=== PATIENT | male | born 1960 | race Caucasian/White ===

== ENCOUNTER 2016-08-10 14:06 | Inpatient (IN) | payer OTHER ==
[2016-08-10] VITALS (8 sets, daily range): BP systolic 117–162; BP diastolic 76–88; PULSE 58–72; RESP 15–22; TEMP 97.8–98.4; O2SAT 98–100
[~2016-08-10] VITALS: Ht 182.9 cm; Wt 89.3 kg
[~2016-08-10 14:06] MED LIST: CYCL-36 PO; GABA100C4 PO; NAPR550 PO; TRIA.1%T TOP; Z.0.NO CURRENT MEDS
[2016-08-10] MEDS ORDERED: HYDROmorphone HCL PF 1 MG/ML VIAL IV PUSH ONE ×2 (14:30→16:45)
[2016-08-10] MEDS ORDERED: IOHEXOL 350 MG/ML 10 ML VIAL (for RAD DIAG) IV ONE (14:49)
[2016-08-10 14:54] LABS: AUTOMATED NEUTROPHIL # 3.4 TH/MM3 (1.8-7.7); BASOPHIL % 0.6 % (0.0-2.0); EOSINOPHIL # 0.1 TH/MM3 (0-0.4); EOSINOPHIL % 1.7 % (0.0-4.0); HEMATOCRIT 36.7 % (39.0-51.0); HEMO FLAGS DIFF FINAL; LYMPH % 26.3 % (9.0-44.0); LYMPHOCYTE # 1.4 TH/MM3 (1.0-4.8); MEAN CELL VOLUME 92.8 FL (80.0-100.0); MEAN CORPUSCULAR HEMOGLOBIN 30.5 PG (27.0-34.0); MEAN CORPUSCULAR HGB CONC 32.8 % (32.0-36.0); MONO % 8.6 % (0.0-8.0); NEUT % 62.8 % (16.0-70.0); PLATELET COUNT 185 TH/MM3 (150-450); RED BLOOD COUNT 3.95 MIL/MM3 (4.50-5.90); RED CELL DISTRIBUTION WIDTH 13.4 % (11.6-17.2); WHITE BLOOD COUNT 5.5 TH/MM3 (4.0-11.0)
--- NOTE | 2016-08-10 15:03 | RADRPT ---
EXAM DATE/TIME: 08/10/2016 14:46 [facility] COMPARISON: No previous studies available for comparison. INDICATIONS : Trauma, fell off roof. RADIATION DOSE: 56.94 CTDIvol (mGy) MEDICAL HISTORY : None SURGICAL HISTORY : None. ENCOUNTER: Initial ACUITY: 1 day PAIN SCALE: 2/10 LOCATION: cranial TECHNIQUE: Multiple contiguous axial images were obtained of the head. Using automated exposure control and adj ustment of the mA and/or kV according to patient size, radiation dose was kept as low as reasonably a chievable to obtain optimal diagnostic quality images. FINDINGS: CEREBRUM: The ventricles are normal. No evidence of midline shift, mass lesion, hemorrhage or acute infarction . No extra-axial fluid collections are seen. POSTERIOR FOSSA: The cerebellum and brainstem demonstrate no acute finding. The 4th ventricle is midline. The cerebe llopontine angle is unremarkable. EXTRACRANIAL: The visualized sinuses are clear. SKULL: The calvaria is intact. No evidence of skull fracture. CONCLUSION: No acute intracranial abnormality is identified. Catrachito Hurley MD on August 10, 2016 at 14:59 Board Certified Radiologist. This report was verified electronically.
--- NOTE | 2016-08-10 15:09 | RADRPT ---
EXAM DATE/TIME: 08/10/2016 14:28 [facility] COMPARISON: No previous studies available for comparison. INDICATIONS : Trauma MEDICAL HISTORY : Smoker. SURGICAL HISTORY : None. ENCOUNTER: Initial ACUITY: 1 day PAIN SCORE: 9/10 LOCATION: Left chest FINDINGS: Two view AP, portable views of the chest demonstrate there is a questionable fracture of the left fou rth rib and maybe even the fifth rib. There is deformity of the sixth rib may also be a fracture. T here is no visible pneumothorax. Lungs are clear, heart and mediastinum are unremarkable. CONCLUSION: Numerous suspected left-sided rib fractures. No visible pneumothorax. William Falcon MD on August 10, 2016 at 14:55 Board Certified Radiologist. This report was verified electronically.
[2016-08-10 15:15] LABS: BICARBONATE 28.3 MEQ/L (21.0-32.0); POTASSIUM 3.7 MEQ/L (3.5-5.1)
--- NOTE | 2016-08-10 15:50 | RADRPT ---
EXAM DATE/TIME: 08/10/2016 14:46 [facility] COMPARISON: No previous studies available for comparison. INDICATIONS : Trauma, fell off roof. RADIATION DOSE: 18.54 CTDIvol (mGy) MEDICAL HISTORY : None SURGICAL HISTORY : None. ENCOUNTER: Initial ACUITY: 1 day PAIN SCALE: 2/10 LOCATION: neck TECHNIQUE: Volumetric scanning of the cervical spine was performed. Multiplanar reconstructions in the sagittal, coronal and oblique axial planes were performed. Using automated exposure control and adjustment o f the mA and/or kV according to patient size, radiation dose was kept as low as reasonably achievable to obtain optimal diagnostic quality images. FINDINGS: There is normal sagittal spine alignment of the cervical spine. No anterolisthesis or retrolisthesis is present. The atlantoaxial relationship is within normal limits. There is no prevertebral soft tiss ue swelling present. No fracture or dislocation is identified. There is decreased disc height at C5-C 6. Left facet arthrosis is present at C2-C3 and bilateral facet arthrosis is present at C7-T1. There is a small left apical pneumothorax identified. Otherwise, the visualized portions of the poste rior fossa, paraspinous soft tissues, and upper lung zones demonstrate no acute abnormality. CONCLUSION: 1. No acute cervical spine abnormality is identified. There are degenerative changes, as above. 2. Small left apical pneumothorax is visualized. Please refer to chest CT report for further descript ion. Catrachito Hurley MD on August 10, 2016 at 15:45 Board Certified Radiologist. This report was verified electronically.
--- NOTE | 2016-08-10 16:05 | RADRPT ---
EXAM DATE/TIME: 08/10/2016 14:54 [facility] Corrected on: August 25, 2016; corrected radiation dose [facility] COMPARISON: No previous studies available for comparison. INDICATIONS : Trauma IV CONTRAST: 95 cc Omnipaque 350 (iohexol) IV ; Cumulative dose for multiple exams. RADIATION DOSE: 12.55 CTDIvol (mGy) ; Combined studies - Thorax/Abdomen/Pelvis MEDICAL HISTORY : None SURGICAL HISTORY : None. ENCOUNTER: Initial ACUITY: 1 day PAIN SCALE: 8/10 LOCATION: Left lateral TECHNIQUE: Volumetric scanning of the chest was performed. Using automated exposure control and adjustment of the mA and/or kV according to patient size, radiation dose was kept as low as reasonab ly achievable to obtain optimal diagnostic quality images. FINDINGS: CT scan of the chest performed without contrast. There is a small left pneumothorax. There are a number of left-sided rib fractures present. There is a small left pleural effusion. The lungs are grossly clear. The aorta is unremarkable. There is coronary atherosclerotic disease. The scapula is unremarkable. The sternum is unremarkable. CONCLUSION: Multiple left-sided rib fractures with a small left pneumothorax. Small pleural effu sweta. Lungs are grossly clear. William Falcon MD on August 10, 2016 at 16:02 Board Certified Radiologist. This report was verified electronically.
--- NOTE | 2016-08-10 16:16 | RADRPT ---
EXAM DATE/TIME: 08/10/2016 15:15 [facility] COMPARISON: No previous studies available for comparison. INDICATIONS : Fell off roof,hit back on ground. RADIATION DOSE: 36.18 CTDIvol (mGy) MEDICAL HISTORY : None SURGICAL HISTORY : None. ENCOUNTER: Initial ACUITY: 1 day PAIN SCALE: 8/10 LOCATION: T-spine TECHNIQUE: Volumetric scanning of the thoracic spine was performed. Multiplanar reconstructions in the sagittal , coronal and oblique axial planes were performed. Using automated exposure control and adjustment o f the mA and/or kV according to patient size, radiation dose was kept as low as reasonably achievable to obtain optimal diagnostic quality images. FINDINGS: The vertebral bodies of the thoracic spine are in normal alignment without evidence of subluxation. Vertebral body height is maintained. No fractures are seen. T1-T2: Normal. T2-T3: The thecal sac has a normal diameter. No evidence of disc bulge or protrusion. T3-T4: The thecal sac has a normal diameter. No evidence of disc bulge or protrusion. T4-T5: The thecal sac has a normal diameter. No evidence of disc bulge or protrusion. T5-T6: The thecal sac has a normal diameter. No evidence of disc bulge or protrusion. T6-T7: The thecal sac has a normal diameter. No evidence of disc bulge or protrusion. T7-T8: The thecal sac has a normal diameter. No evidence of disc bulge or protrusion. T8-T9: The thecal sac has a normal diameter. No evidence of disc bulge or protrusion. T9-T10: The thecal sac has a normal diameter. No evidence of disc bulge or protrusion. T10-T11: The thecal sac has a normal diameter. No evidence of disc bulge or protrusion. T11-T12: The thecal sac has a normal diameter. No evidence of disc bulge or protrusion. T12-L1: The thecal sac has a normal diameter. No evidence of disc bulge or protrusion. CONCLUSION: Normal examination. William Falcon MD on August 10, 2016 at 16:14 Board Certified Radiologist. This report was verified electronically.
--- NOTE | 2016-08-10 16:21 | RADRPT ---
EXAM DATE/TIME: 08/10/2016 14:54 [facility] COMPARISON: CT THORAX W CONTRAST, August 10, 2016, 14:54. INDICATIONS : Trauma, fell off roof. Left sided pain. IV CONTRAST: 95 cc Omnipaque 350 (iohexol) IV ; Cumulative dose for multiple exams. ORAL CONTRAST: No oral contrast ingested. RADIATION DOSE: 12.55 CTDIvol (mGy) ; Combined studies - Thorax/Abdomen/Pelvis MEDICAL HISTORY : None SURGICAL HISTORY : None. ENCOUNTER: Initial ACUITY: 1 day PAIN SCALE: 8/10 LOCATION: Left lateral TECHNIQUE: Volumetric scanning of the abdomen and pelvis was performed. Using automated exposure control and ad justment of the mA and/or kV according to patient size, radiation dose was kept as low as reasonably achievable to obtain optimal diagnostic quality images. FINDINGS: LOWER LUNGS: Please refer to chest CT report for description of the supradiaphragmatic findings. LIVER: No acute injury. There is no dilation of the biliary tree. No calcified gallstones. SPLEEN: No acute injury. PANCREAS: Within normal limits. KIDNEYS: Normal in size and shape. There is no mass, stone or hydronephrosis. ADRENAL GLANDS: Within normal limits. VASCULAR: There is no aortic aneurysm. No acute injury. There is moderate atherosclerotic disease. BOWEL/MESENTERY: The stomach, small bowel, and colon demonstrate no acute abnormality. There is no free intraperitone al air or fluid. ABDOMINAL WALL: Within normal limits. RETROPERITONEUM: There is no lymphadenopathy. BLADDER: No wall thickening or mass. REPRODUCTIVE: Within normal limits. INGUINAL: There is no lymphadenopathy or hernia. MUSCULOSKELETAL: There is a comminuted fracture of the left posterior lateral seventh rib and there is slight buckling of the lateral cortex of the right lateral sixth rib. Degenerative changes are present in the lumbar spine. CONCLUSION: 1. There is a left posterior lateral seventh rib fracture and a right lateral sixth rib fracture. A l eft pneumothorax is present. 2. No acute abnormality is identified within the abdomen or pelvis. 3. There is moderate atherosclerotic disease. Catrachito Hurley MD on August 10, 2016 at 16:16 Board Certified Radiologist. This report was verified electronically.
--- NOTE | 2016-08-10 16:54 | PD ---
HPI Chief Complaint: Fall Time Seen by Provider: 14:20 Travel History International Travel<30 days: No Contact w/Intl Traveler<30days: No Traveled to known affect area: No History of Present Illness HPI This is a 55-year-old male who presents to the emergency department having fallen off a roof landing on his left side. He is reporting severe left sided chest pain, constant, worse with deep breaths radiating to the back. He says he doesn't think he hit his head. He is denying any other complaints. PFSH Past Medical History Medical History: Denies Significant Hx Diminished Hearing: No Tetanus Vaccination: < 5 Years Influenza Vaccination: No Social History Alcohol Use: No Tobacco Use: Yes ( 1 ppd) Substance Use: No Allergies-Medications (Allergen,Severity, Reaction): Coded Allergies: No Known Allergies (Verified , 08/10/16) Reported Meds & Prescriptions Reported Meds & Active Scripts Active No Active Prescriptions or Reported Medications Review of Systems Except as stated in HPI: all other systems reviewed are Neg Physical Exam Narrative GENERAL: Uncomfortable in moderate pain SKIN: Focused skin assessment warm and dry. HEAD: Atraumatic. Normocephalic. EYES: Pupils equal and round. No injection or drainage. ENT: Moist mucous membranes NECK: Trachea midline. CARDIOVASCULAR: Regular rate and rhythm. No murmur appreciated. RESPIRATORY: Clear to auscultation. Breath sounds equal bilaterally. Tender to palpation along the left posterior rib cage. GASTROINTESTINAL: Abdomen soft, non-tender, nondistended. MUSCULOSKELETAL: No obvious deformities. NEUROLOGICAL: Awake and alert. No obvious cranial nerve deficits. Moving all extremities. PSYCHIATRIC: Appropriate mood and affect; insight and judgment normal. Data Data Last Documented VS Vital Signs Date Time Temp Pulse Resp B/P Pulse Ox O2 Delivery O2 Flow Rate FiO2 08/10/16 15:47 78 17 99 Room Air 08/10/16 15:45 133/82 08/10/16 14:21 98.2 Orders Complete Blood Count With Diff (08/10/16 14:20) Basic Metabolic Panel (Bmp) (08/10/16 14:20) ^ Insert Iv (08/10/16 14:20) Ct Brain W/O Iv Contrast(Rout) (08/10/16 ) Ct Cerv Spine W/O Contrast (08/10/16 ) Ct Thorax/ Chest W Iv Contrast (08/10/16 ) Ct Abd/Pel W Iv Contrast(Rout) (08/10/16 ) Chest, Single Ap (08/10/16 ) Hydromorphone Pf Inj (Dilaudid Pf Inj) (08/10/16 14:30) Ct Thor Spine W/O Contrast (08/10/16 ) Iohexol 350 Inj (Omnipaque 350 Inj) (08/10/16 14:49) Hydromorphone Pf Inj (Dilaudid Pf Inj) (08/10/16 16:45) Admit Order (Ed Use Only) (08/10/16 16:34) Labs Laboratory Tests Test 08/10/16 14:30 White Blood Count 5.5 TH/MM3 Red Blood Count 3.95 MIL/MM3 Hemoglobin 12.1 GM/DL Hematocrit 36.7 % Mean Corpuscular Volume 92.8 FL Mean Corpuscular Hemoglobin 30.5 PG Mean Corpuscular Hemoglobin 32.8 % Concent Red Cell Distribution Width 13.4 % Platelet Count 185 TH/MM3 Mean Platelet Volume 8.9 FL Neutrophils (%) (Auto) 62.8 % Lymphocytes (%) (Auto) 26.3 % Monocytes (%) (Auto) 8.6 % Eosinophils (%) (Auto) 1.7 % Basophils (%) (Auto) 0.6 % Neutrophils # (Auto) 3.4 TH/MM3 Lymphocytes # (Auto) 1.4 TH/MM3 Monocytes # (Auto) 0.5 TH/MM3 Eosinophils # (Auto) 0.1 TH/MM3 Basophils # (Auto) 0.0 TH/MM3 CBC Comment DIFF FINAL Differential Comment Sodium Level 143 MEQ/L Potassium Level 3.7 MEQ/L Chloride Level 109 MEQ/L Carbon Dioxide Level 28.3 MEQ/L Anion Gap 6 MEQ/L Blood Urea Nitrogen 14 MG/DL Creatinine 0.91 MG/DL Estimat Glomerular Filtration 86 ML/MIN Rate Random Glucose 108 MG/DL Calcium Level 8.5 MG/DL [facility] Medical Decision Making Medical Screen Exam Complete: Yes Emergency Medical Condition: Yes Interpretation(s) Afebrile, hypertensive No leukocytosis Mild anemia Electrolytes are reassuring Last 24 hours Impressions Thoracic Spine CT 08/10/16 0000 Signed Impressions: Service Date/Time: July 15:15 - CONCLUSION: Normal examination. William Falcon MD Head CT 08/10/16 Signed Impressions: Service Date/Time: July 14:46 - CONCLUSION: No acute intracranial abnormality is identified. Catrachito Hurley MD Chest X-Ray 08/10/16 Signed Impressions: Service Date/Time: July 14:28 - CONCLUSION: Numerous suspected left-sided rib fractures. No visible pneumothorax. William Falcon MD Cervical Spine CT 08/10/16 Signed Impressions: Service Date/Time: July 14:46 - CONCLUSION: 1. No acute cervical spine abnormality is identified. There are degenerative changes, as above. 2. Small left apical pneumothorax is visualized. Please refer to chest CT report for further description. Catrachito Hurley MD Abdomen/Pelvis CT 08/10/16 Signed Impressions: Service Date/Time: July 14:54 - CONCLUSION: 1. There is a left posterior lateral seventh rib fracture and a right lateral sixth rib fracture. A left pneumothorax is present. 2. No acute abnormality is identified within the abdomen or pelvis. 3. There is moderate atherosclerotic disease. Catrachito Hurley MD Differential Diagnosis Pneumothorax, hemothorax, rib fracture, compression fracture, splenic laceration , liver laceration Narrative Course This is a 55-year-old male who fell off a roof landing on his left side. Patient is reporting severe pain involving the left posterior ribs. He was placed on a monitor and an IV was established. Labs were obtained which were reassuring. Vital signs are reassuring with no hypoxia. Chest x-ray demonstrates rib fractures. CTs were obtained which demonstrate multiple rib fractures with a small left pneumothorax. Case was discussed with Physician Communication Physician Communication Discussed with Dr. Babcock Diagnosis Primary Impression: Pneumothorax Qualified Code: S27.0XXA - Traumatic pneumothorax, initial encounter Admitting Information Admitting Physician Requests: Admit Scripts No Active Prescriptions or Reported Meds Jeannie Chamberlain MD Aug 10, 2016 16:53
[2016-08-10] MEDS ORDERED: LIDOCAINE HCL 1% PF 30 ML VIAL INFIL ONE (17:00)
[2016-08-10] MEDS ORDERED: PCA - TOTAL MG DILAUDID DELIVERED PER SHIFT OTHER SCH (17:15)
[2016-08-10] MEDS ORDERED: SODIUM CHLORIDE 0.9% FLUSH 10 ML FLUSH IV FLUSH PRN (17:15)
[2016-08-10] MEDS ORDERED: ONDANSETRON HCL 4 MG/2 ML VIAL IV PRN (17:15)
[2016-08-10] MEDS ORDERED: MISCELLANEOUS NURSING INFORMATION XX SCH (17:15)
[2016-08-10] MEDS ORDERED: CHLORHEXIDINE GLUCONATE 2 % 1 PACK (2 CLOTHS) TOP PRN (17:15)
[2016-08-10] MEDS ORDERED: NALOXONE HCL 0.4 MG/ML AMP IV PRN ×2 (17:15→19:45)
[2016-08-10] MEDS ORDERED: MIDAZOLAM HCL 5 MG/ML VIAL (1 ML) ONE (17:17)
[2016-08-10] MEDS: SODIUM CHLOR 0.9% 1000 ML INJ 1,000 ML IV SCH (17:30)
[2016-08-10] MEDS ORDERED: KETAMINE HCL 500 MG/10 ML VIAL ONE (17:37)
--- NOTE | 2016-08-10 18:29 | RADRPT ---
EXAM DATE/TIME: 08/10/2016 17:58 [facility] COMPARISON: CT THORAX W CONTRAST, August 10, 2016, 14:54. CHEST SINGLE AP, August 10, 2016, 14:28. INDICATIONS : Chest tube placement. MEDICAL HISTORY : None. SURGICAL HISTORY : None. ENCOUNTER: Initial ACUITY: 1 day PAIN SCORE: 10/10 LOCATION: Left chest FINDINGS: There has been interval placement of a left thoracostomy tube. Pneumothorax is resolved. Chest is oth erwise stable and satisfactory. There is some subcutaneous emphysema now present along the lateral le ft chest wall CONCLUSION: Left thoracostomy tube placement. Catrachito Huynh MD on August 10, 2016 at 18:26 Board Certified Radiologist. This report was verified electronically.
--- NOTE | 2016-08-10 18:58 | HHI.HP ---
History of Present Illness Primary Care Physician No Primary Care Physician Admission Diagnosis pneumothorax Diagnoses: History of Present Illness 55 y.o male from [facility]-c/o left thoracic pain-s/p moderate sedation with ketamine for CT insertion-HD normal.moving all 4 extremities-neuro intact-CT scan work up performed by ER. Review of Systems Constitutional: DENIES: Diaphoretic episodes, Fatigue, Fever, Weight gain, Weight loss, Chills, Dizziness, Change in appetite, Night Sweats Endocrine: DENIES: Heat/cold intolerance, Polydipsia, Polyuria, Polyphagia Eyes: DENIES: Blurred vision, Diplopia, Eye inflammation, Eye pain, Vision loss , Photosensitivity, Double Vision Ears, nose, mouth, throat: DENIES: Tinnitus, Hearing loss, Vertigo, Nasal discharge, Oral lesions, Throat pain, Hoarseness, Ear Pain, Running Nose, Epistaxis, Sinus Pain, Toothache, Odynophagia Respiratory: DENIES: Apneas, Cough, Snoring, Wheezing, Hemoptysis, Sputum production, Shortness of breath Cardiovascular: DENIES: Chest pain, Palpitations, Syncope, Dyspnea on Exertion , PND, Lower Extremity Edema, Orthopnea, Claudication Gastrointestinal: DENIES: Abdominal pain, Black stools, Bloody stools, Constipation, Diarrhea, Nausea, Vomiting, Difficulty Swallowing, Anorexia Genitourinary: DENIES: Sexual dysfunction, Urinary frequency, Urinary incontinence, Urgency, Hematuria, Dysuria, Nocturia, Penile Discharge, Testicular Pain, Testicular Swelling Musculoskeletal: DENIES: Joint pain, Muscle aches, Stiffness, Joint Swelling, Back pain, Neck pain Integumentary: DENIES: Abnormal pigmentation, Nail changes, Pruritus, Rash Hematologic/lymphatic: DENIES: Bruising, Lymphadenopathy Immunologic/allergic: DENIES: Eczema, Urticaria Neurologic: DENIES: Abnormal gait, Headache, Localized weakness, Paresthesias, Seizures, Speech Problems, Tremor, Poor Balance Psychiatric: DENIES: Anxiety, Confusion, Mood changes, Depression, Hallucinations, Agitation, Suicidal Ideation, Homicidal Ideation, Delusions Past Family Social History Allergies: Coded Allergies: No Known Allergies (Verified , 08/10/16) Past Medical History none Past Surgical History none Reported Medications none Active Ordered Medications Current Medications Medications (Trade) Dose Ordered Sig/Cecilio Route Start Time Stop Time Status Last Admin (NS 1000 ml Inj) 1,000 ml @ 84 mls/hr [id number] IV 08/10/16 17:02 08/10/16 17:30 (NS Flush) 2 ml UNSCH PRN IV FLUSH 08/10/16 17:15 (NS Flush) 2 ml BID IV FLUSH 08/10/16 21:00 (Zofran Inj) 4 mg Q6H PRN IV 08/10/16 17:15 (Lactulose Liq) 30 ml DAILY PO 08/11/16 09:00 Miscellaneous Information 1 [id number] XX 08/10/16 17:15 (Chlorhexidine 2% Cloth) 3 pack Taper DAILY@04 TOP 08/11/16 04:00 08/07/17 03:59 (Chlorhexidine 2% Cloth) 3 pack UNSCH PRN TOP 08/10/16 17:15 (Narcan Inj) 0.4 mg UNSCH PRN IV 08/10/16 17:15 TRANSFER CLERK Dosage Infused (Pha) 1 Q8HR OTHER 08/10/16 17:15 Family History none Social History tobacco- + Physical Exam Vital Signs Vital Signs Date Time Temp Pulse Resp B/P Pulse Ox O2 Delivery O2 Flow Rate FiO2 08/10/16 18:17 97.8 58 18 117/88 100 Nasal Cannula 2 08/10/16 18:07 100 6.00 08/10/16 17:33 60 18 159/81 100 Nasal Cannula 2 08/10/16 17:08 17 08/10/16 15:47 78 17 99 Room Air 08/10/16 15:45 59 16 133/82 98 Room Air 08/10/16 15:03 17 08/10/16 14:21 98.2 71 15 154/85 98 Physical Exam GENERAL: This is a well-nourished, well-developed patient, in no apparent distress. SKIN: No rashes, ecchymoses or lesions. Cool and dry. HEAD: Atraumatic. Normocephalic. No temporal or scalp tenderness. EYES: Pupils equal round and reactive. Extraocular motions intact. No scleral icterus. No injection or drainage. ENT: Nose without bleeding, purulent drainage or septal hematoma. Throat without erythema, tonsillar hypertrophy or exudate. Uvula midline. Airway patent. NECK: Trachea midline. No JVD or lymphadenopathy. Supple, nontender, no meningeal signs. CARDIOVASCULAR: Regular rate and rhythm without murmurs, gallops, or rubs. RESPIRATORY: Clear to auscultation. Breath sounds equal bilaterally. No wheezes , rales, or rhonchi.-left thoracic tenderness GASTROINTESTINAL: Abdomen soft, non-tender, nondistended. No hepato-splenomegaly , or palpable masses. No guarding. MUSCULOSKELETAL: Extremities without clubbing, cyanosis, or edema. No joint tenderness, effusion, or edema noted. No calf tenderness. Negative Homans sign bilaterally. NEUROLOGICAL: Awake and alert. Cranial nerves II through XII intact. Motor and sensory grossly within normal limits. Five out of 5 muscle strength in all muscle groups. Normal speech. Laboratory Laboratory Tests Test 08/10/16 14:30 White Blood Count 5.5 Red Blood Count 3.95 Hemoglobin 12.1 Hematocrit 36.7 Mean Corpuscular Volume 92.8 Mean Corpuscular Hemoglobin 30.5 Mean Corpuscular Hemoglobin 32.8 Concent Red Cell Distribution Width 13.4 Platelet Count 185 Mean Platelet Volume 8.9 Neutrophils (%) (Auto) 62.8 Lymphocytes (%) (Auto) 26.3 Monocytes (%) (Auto) 8.6 Eosinophils (%) (Auto) 1.7 Basophils (%) (Auto) 0.6 Neutrophils # (Auto) 3.4 Lymphocytes # (Auto) 1.4 Monocytes # (Auto) 0.5 Eosinophils # (Auto) 0.1 Basophils # (Auto) 0.0 CBC Comment DIFF FINAL Differential Comment Sodium Level 143 Potassium Level 3.7 Chloride Level 109 Carbon Dioxide Level 28.3 Anion Gap 6 Blood Urea Nitrogen 14 Creatinine 0.91 Estimat Glomerular Filtration 86 Rate Random Glucose 108 Calcium Level 8.5 Result Diagram: 08/10/16 1430 08/10/16 1430 Imaging Last 24 hours Impressions Thoracic Spine CT 08/10/16 0000 Signed Impressions: Service Date/Time: July 15:15 - CONCLUSION: Normal examination. William Falcon MD Head CT 08/10/16 0000 Signed Impressions: Service Date/Time: July 14:46 - CONCLUSION: No acute intracranial abnormality is identified. Catrachito Hurley MD Chest X-Ray 08/10/16 0000 Signed Impressions: Service Date/Time: July 17:58 - CONCLUSION: Left thoracostomy tube placement. Catrachito Huynh MD Chest X-Ray 08/10/16 0000 Signed Impressions: Service Date/Time: July 14:28 - CONCLUSION: Numerous suspected left-sided rib fractures. No visible pneumothorax. William Falcon MD Chest CT 08/10/16 0000 Signed Impressions: Service Date/Time: July 14:54 - CONCLUSION: Multiple left-sided rib fractures with a small left pneumothorax. Small pleural effusion. Lungs are grossly clear. William Falcon MD Cervical Spine CT 08/10/16 0000 Signed Impressions: Service Date/Time: , August 10, 2016 14:46 - CONCLUSION: 1. No acute cervical spine abnormality is identified. There are degenerative changes, as above. 2. Small left apical pneumothorax is visualized. Please refer to chest CT report for further description. Catrachito Hurley MD Abdomen/Pelvis CT 08/10/16 0000 Signed Impressions: Service Date/Time: July 14:54 - CONCLUSION: 1. There is a left posterior lateral seventh rib fracture and a right lateral sixth rib fracture. A left pneumothorax is present. 2. No acute abnormality is identified within the abdomen or pelvis. 3. There is moderate atherosclerotic disease. Catrachito Hurley MD Course multiple left rib fx left 20-30% ptx left CT thoracostomy by ER admit to ICU TRANSFER CLERK pulmonary toilet IS Rubi Ray MD Aug 10, 2016 18:58
[2016-08-10] MEDS: KETOROLAC TROMETHAMINE 30 MG/ML (IVP) VIAL IV PUSH SCH (20:21)
[2016-08-10] MEDS: SODIUM CHLORIDE 0.9% FLUSH 10 ML FLUSH IV FLUSH SCH (20:21)
[2016-08-10] MEDS: HYDROmorphone HCL PCA 6 MG/30 ML IV SCH (21:08)
[2016-08-10] MEDS: PCA - TOTAL MG DILAUDID DELIVERED PER SHIFT OTHER SCH (22:00)
[2016-08-11] VITALS (11 sets, daily range): BP systolic 104–145; BP diastolic 63–82; PULSE 54–88; RESP 12–22; TEMP 97.5–99.2; O2SAT 92–100
[2016-08-11] MEDS: KETOROLAC TROMETHAMINE 30 MG/ML (IVP) VIAL IV PUSH SCH ×5 (00:25→22:20)
[2016-08-11] MEDS: SODIUM CHLOR 0.9% 1000 ML INJ 1,000 ML IV SCH (03:19)
[2016-08-11] MEDS: CHLORHEXIDINE GLUCONATE 2 % 1 PACK (2 CLOTHS) TOP SCH (04:00)
[2016-08-11 04:40] LABS: AUTOMATED NEUTROPHIL # 3.7 TH/MM3 (1.8-7.7); BASOPHIL % 0.2 % (0.0-2.0); EOSINOPHIL % 0.6 % (0.0-4.0); HEMATOCRIT 36.9 % (39.0-51.0); HEMO FLAGS DIFF FINAL; LYMPH % 34.2 % (9.0-44.0); LYMPHOCYTE # 2.3 TH/MM3 (1.0-4.8); MEAN CELL VOLUME 93.7 FL (80.0-100.0); MEAN CORPUSCULAR HEMOGLOBIN 30.4 PG (27.0-34.0); MEAN CORPUSCULAR HGB CONC 32.4 % (32.0-36.0); MONO % 9.9 % (0.0-8.0); NEUT % 55.1 % (16.0-70.0); PLATELET COUNT 169 TH/MM3 (150-450); RED BLOOD COUNT 3.94 MIL/MM3 (4.50-5.90); RED CELL DISTRIBUTION WIDTH 12.9 % (11.6-17.2); WHITE BLOOD COUNT 6.7 TH/MM3 (4.0-11.0)
[2016-08-11 04:57] LABS: BICARBONATE 31.1 MEQ/L (21.0-32.0); POTASSIUM 4.4 MEQ/L (3.5-5.1)
[2016-08-11] MEDS: PCA - TOTAL MG DILAUDID DELIVERED PER SHIFT OTHER SCH ×3 (06:00→21:02)
--- NOTE | 2016-08-11 06:59 | RADRPT ---
EXAM DATE/TIME: 08/11/2016 05:50 [facility] COMPARISON: CHEST SINGLE AP, August 10, 2016, 17:58. INDICATIONS : Shortness of breath. MEDICAL HISTORY : None. SURGICAL HISTORY : None. ENCOUNTER: Subsequent ACUITY: 3 days PAIN SCORE: Non-responsive. LOCATION: chest FINDINGS: Left chest tube remains in place. No definite pneumothorax. The lungs are grossly clear. The heart si ze is stable. There are no pleural effusions. CONCLUSION: No definite pneumothorax. Dino Erickson MD on August 11, 2016 at 6:57 Board Certified Radiologist. This report was verified electronically.
[2016-08-11] MEDS: LACTULOSE SYRUP 20 GM/30 ML CUP PO SCH (08:35)
[2016-08-11] MEDS: LIDOCAINE HCL 5% PATCH T-DERMAL SCH (08:37)
[2016-08-11] MEDS: FAMOTIDINE 20 MG TAB PO SCH ×2 (08:39→19:41)
[2016-08-11] MEDS: METHOCARBAMOL 500 MG TAB PO SCH ×3 (08:39→22:20)
[2016-08-11] MEDS: SODIUM CHLORIDE 0.9% FLUSH 10 ML FLUSH IV FLUSH SCH ×2 (08:39→19:42)
[2016-08-11] MEDS: DOCUSATE SODIUM 100 MG CAP PO SCH ×2 (08:39→19:41)
[2016-08-11] MEDS: ENOXAPARIN SODIUM 30 MG/0.3 ML SYRINGE SQ SCH ×2 (08:47→19:41)
--- NOTE | 2016-08-11 11:05 | HHI.CCPN ---
Subjective Brief History [place]: This is a 55-year-old male who was involved in a fall from a roof and landed on his left side. INJURIES: LEFT rib fx (multiple) LEFT PTX RIGHT rib fx (6) Procedures: 08/10: LEFT CT in the ED 24 Hour Review/Hospital Course 08/11/2016 PTD: 1 Patient is awake and sitting up in bed. He states, "I'm not that bad, I'm doing alright. " Plan for transferred to the [facility] floor. (Brenna Hull) Objective Vital Signs Date Time Temp Pulse Resp B/P Pulse Ox O2 Delivery O2 Flow Rate FiO2 08/11/16 10:52 97.7 62 20 104/66 93 08/11/16 08:33 Room Air 08/11/16 08:21 2.00 Intake and Output 08/10/16 08/10/16 08/11/16 08:00 16:00 00:00 Intake Total 1551 ml Output Total 20 ml Balance 1531 ml (Brenna Hull) Imaging Last 24 hours Impressions Chest X-Ray 08/11/16 0000 Signed Impressions: Service Date/Time: Thursday, August 11, 2016 05:50 - CONCLUSION: No definite pneumothorax. Dino Erickson MD Objective Remarks GENERAL: This is a 55-year-old male sitting up in bed in no acute distress SKIN: Warm and dry. HEAD: Atraumatic. Normocephalic. EYES: PERRLA ENT: No nasal bleeding or discharge. Mucous membranes pink and moist. NECK: Trachea midline. No JVD. CARDIOVASCULAR: Regular rate and rhythm. CM shows sinus rhythm. RESPIRATORY: No accessory muscle use. Lungs are clear to auscultation. Breath sounds equal bilaterally. No distress or dyspnea. Left chest tube in place to Pleur-evac drainage system to 20 cm suction. GASTROINTESTINAL: BS + x 4 quads. Abdomen soft, non-tender, nondistended. MUSCULOSKELETAL: Extremities without cyanosis, or edema. + peripheral pulses x 4 extremities. Warm with good capillary refill and sensation. MAEW. NEUROLOGICAL: Awake and alert. Normal speech and pattern. (Brenna Hull) Urinary Catheter Assessment Urinary Catheter: No (Brenna Hull) Vascular Central Line Catheter Vascular Central Line Catheter: No (Brenna Hull) Assessment and Plan Assessment: (1) Pneumothorax ICD Code: J93.9 Status: Acute (2) Ribs, multiple fractures ICD Code: S22.49XA Status: Acute Plan [place]: This is a 55-year-old male who was involved in a fall from a roof and landed on his left side. INJURIES: LEFT rib fx (multiple) LEFT PTX RIGHT rib fx (6) 08/10: LEFT CT in the ED Diet: Regular diet. Tolerating po diet. Encourage good po intake with each meal. Pulmonary: Encourage good pulmonary toileting. IS and a acapella at bedside and pt encouraged to use. Rationale for use explained to patient, and verbalized understanding. EZ pap. Left chest tube remains in place to 20 cm suction. Repeat chest x-ray in the morning. Repeat labs in the a.m. 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 Robaxin. Lidoderm patch. Activity: OOB. PT ordered. GI prophylaxis: Pepcid po Bowel regimen: Colace and MOM. LBM: 0 DVT prophylaxis: Mechanical VTE with SCDs. Chemical management with Lovenox 30 BID SQ. DC Planning: Case management consulted for assistance with final discharge disposition. Emotional support provided to patient and family at bedside and plan of care discussed. Discussed with RN at bedside. Patient is hemodynamically stable in the ICU and therefore can be transferred and managed on the med/surg floor. (Brenna Hull) Remarks seen and examined with SERVICING REP-agree with assessment and plan overall stable continue current care (Rubi Ray MD) Problem Qualifiers (1) Pneumothorax: Qualified Code: S27.0XXA - Traumatic pneumothorax, initial encounter (2) Ribs, multiple fractures: Qualified Code: S22.42XA - Closed fracture of multiple ribs of left side, initial encounter Brenna Hull Aug 11, 2016 11:05 Rubi Ray MD August 30, 2016 12:23
[2016-08-11] MEDS ORDERED: SIMETHICONE 80 MG CHEWABLE TAB CHEW PRN (14:45)
[2016-08-11] MEDS: HYDROmorphone HCL PCA 6 MG/30 ML IV SCH (18:32)
[2016-08-11] MEDS: MAGNESIUM HYDROXIDE SUSP 30 ML CUP PO SCH (19:42)
[2016-08-12 00:23] VITALS: BP 102/62; PULSE 64; RESP 20; TEMP 99.4; O2SAT 94
[2016-08-12] MEDS: CHLORHEXIDINE GLUCONATE 2 % 1 PACK (2 CLOTHS) TOP SCH (04:00)
[2016-08-12 04:11] VITALS: BP 115/72; PULSE 72; RESP 22; TEMP 98.9; O2SAT 92
[2016-08-12] MEDS: PCA - TOTAL MG DILAUDID DELIVERED PER SHIFT OTHER SCH ×3 (04:44→22:48)
[2016-08-12] MEDS: METHOCARBAMOL 500 MG TAB PO SCH ×3 (05:07→22:48)
[2016-08-12] MEDS: KETOROLAC TROMETHAMINE 30 MG/ML (IVP) VIAL IV PUSH SCH ×4 (05:08→22:48)
[2016-08-12 05:34] LABS: AUTOMATED NEUTROPHIL # 3.1 TH/MM3 (1.8-7.7); BASOPHIL % 0.3 % (0.0-2.0); EOSINOPHIL # 0.2 TH/MM3 (0-0.4); EOSINOPHIL % 2.7 % (0.0-4.0); HEMATOCRIT 35.4 % (39.0-51.0); HEMO FLAGS DIFF FINAL; LYMPH % 34.1 % (9.0-44.0); MEAN CELL VOLUME 92.8 FL (80.0-100.0); MEAN CORPUSCULAR HEMOGLOBIN 31.4 PG (27.0-34.0); MEAN CORPUSCULAR HGB CONC 33.9 % (32.0-36.0); MONO % 10.1 % (0.0-8.0); NEUT % 52.8 % (16.0-70.0); PLATELET COUNT 165 TH/MM3 (150-450); RED BLOOD COUNT 3.81 MIL/MM3 (4.50-5.90); RED CELL DISTRIBUTION WIDTH 13.2 % (11.6-17.2); WHITE BLOOD COUNT 5.8 TH/MM3 (4.0-11.0)
[2016-08-12 05:56] LABS: ALT (GPT) 95 U/L (12-78); ANION GAP 4 MEQ/L (5-15); AST (GOT) 76 U/L (15-37); BICARBONATE 29.1 MEQ/L (21.0-32.0); BLOOD UREA NITROGEN 17 MG/DL (7-18); CHLORIDE 106 MEQ/L (98-107); GLOMERULAR FILTRATION RATE 85 ML/MIN (>89); MAGNESIUM 2.1 MG/DL (1.5-2.5); POTASSIUM 3.9 MEQ/L (3.5-5.1); SODIUM (NA) 139 MEQ/L (136-145)
[2016-08-12 05:59] LABS: ALKALINE PHOSPHATASE 68 U/L (45-117); TOTAL BILIRUBIN ADULT 0.4 MG/DL (0.2-1.0)
--- NOTE | 2016-08-12 06:31 | RADRPT ---
EXAM DATE/TIME: 08/12/2016 05:18 [facility] COMPARISON: CHEST SINGLE AP, August 11, 2016, 5:50. INDICATIONS : Shortness of breath, possible pulmonary disease. MEDICAL HISTORY : None. SURGICAL HISTORY : None. ENCOUNTER: Subsequent ACUITY: 4 - 6 days PAIN SCORE: 6/10 LOCATION: Left chest FINDINGS: The cardiac silhouette is enlarged in transverse diameter. Left chest tube is in place. There is a ti ny left apical pneumothorax. The right lung is free of acute parenchymal opacity. CONCLUSION: 1. Tiny left apical pneumothorax without tension Greg Rizo MD on August 12, 2016 at 6:29 Board Certified Radiologist. This report was verified electronically.
[2016-08-12] MEDS ORDERED: BISACODYL 10 MG SUPP RECTAL ONE (07:30)
[2016-08-12] MEDS ORDERED: BISACODYL EC 5 MG TABEC PO ONE (07:30)
[2016-08-12 08:00] VITALS: BP 152/84; PULSE 66; RESP 19; TEMP 97.8; O2SAT 94
[2016-08-12] MEDS: LACTULOSE SYRUP 20 GM/30 ML CUP PO SCH (08:01)
[2016-08-12] MEDS: ENOXAPARIN SODIUM 30 MG/0.3 ML SYRINGE SQ SCH ×2 (08:01→21:01)
[2016-08-12] MEDS: FAMOTIDINE 20 MG TAB PO SCH ×2 (08:01→21:01)
[2016-08-12] MEDS: LIDOCAINE HCL 5% PATCH T-DERMAL SCH (08:02)
[2016-08-12] MEDS: SODIUM CHLORIDE 0.9% FLUSH 10 ML FLUSH IV FLUSH SCH ×2 (08:02→21:00)
[2016-08-12] MEDS: DOCUSATE SODIUM 100 MG CAP PO SCH ×2 (08:02→21:01)
[2016-08-12] MEDS: POLYETHYLENE GLYCOL 17 GM PKG PO SCH (08:02)
[2016-08-12 12:00] VITALS: BP 156/89; PULSE 72; RESP 18; TEMP 96; O2SAT 94
--- NOTE | 2016-08-12 13:08 | HHI.PR ---
Subjective Subjective Notes PTD: 2 Patient sitting up in bed. at bedside. Patient still complaining of pain, especially to the left chest/ribs area. Patient states the pain can be up to a 7-8/10 when he is doing his incentive spirometry, or coughing. Objective Vitals/I&O Vital Signs Date Time Temp Pulse Resp B/P Pulse Ox O2 Delivery O2 Flow Rate FiO2 08/12/16 12:00 96.0 72 18 156/89 94 08/12/16 08:50 Room Air 08/11/16 08:21 2.00 Labs Laboratory Tests Test 08/12/16 05:04 White Blood Count 5.8 Red Blood Count 3.81 Hemoglobin 12.0 Hematocrit 35.4 Mean Corpuscular Volume 92.8 Mean Corpuscular Hemoglobin 31.4 Mean Corpuscular Hemoglobin 33.9 Concent Red Cell Distribution Width 13.2 Platelet Count 165 Mean Platelet Volume 9.7 Neutrophils (%) (Auto) 52.8 Lymphocytes (%) (Auto) 34.1 Monocytes (%) (Auto) 10.1 Eosinophils (%) (Auto) 2.7 Basophils (%) (Auto) 0.3 Neutrophils # (Auto) 3.1 Lymphocytes # (Auto) 2.0 Monocytes # (Auto) 0.6 Eosinophils # (Auto) 0.2 Basophils # (Auto) 0.0 CBC Comment DIFF FINAL Differential Comment Sodium Level 139 Potassium Level 3.9 Chloride Level 106 Carbon Dioxide Level 29.1 Anion Gap 4 Blood Urea Nitrogen 17 Creatinine 0.92 Estimat Glomerular Filtration 85 Rate Random Glucose 98 Calcium Level 8.2 Magnesium Level 2.1 Total Bilirubin 0.4 Aspartate Amino Transf 76 (AST/SGOT) Alanine Aminotransferase 95 (ALT/SGPT) Alkaline Phosphatase 68 Total Protein 6.4 Albumin 2.8 Radiology Last Impressions Chest X-Ray 08/12/16 0600 Signed Impressions: Service Date/Time: Friday, August 12, 2016 05:18 - CONCLUSION: 1. Tiny left apical pneumothorax without tension Greg Rizo MD Thoracic Spine CT 08/10/16 0000 Signed Impressions: Service Date/Time: July 15:15 - CONCLUSION: Normal examination. William Falcon MD Head CT 08/10/16 0000 Signed Impressions: Service Date/Time: July 14:46 - CONCLUSION: No acute intracranial abnormality is identified. Catrachito Hurley MD Chest CT 08/10/16 0000 Signed Impressions: Service Date/Time: July 14:54 - CONCLUSION: Multiple left-sided rib fractures with a small left pneumothorax. Small pleural effusion. Lungs are grossly clear. William Falcon MD Cervical Spine CT 08/10/16 0000 Signed Impressions: Service Date/Time: July 14:46 - CONCLUSION: 1. No acute cervical spine abnormality is identified. There are degenerative changes, as above. 2. Small left apical pneumothorax is visualized. Please refer to chest CT report for further description. Catrachito Hurley MD Abdomen/Pelvis CT 08/10/16 0000 Signed Impressions: Service Date/Time: July 14:54 - CONCLUSION: 1. There is a left posterior lateral seventh rib fracture and a right lateral sixth rib fracture. A left pneumothorax is present. 2. No acute abnormality is identified within the abdomen or pelvis. 3. There is moderate atherosclerotic disease. Catrachito Hurley MD Narrative Exam GENERAL: This is a 55-year-old male sitting up in bed in no acute distress. SKIN: Warm and dry. HEAD: Atraumatic. Normocephalic. EYES: PERRLA ENT: No nasal bleeding or discharge. Mucous membranes pink and moist. NECK: Trachea midline. No JVD. CARDIOVASCULAR: Regular rate and rhythm. CM shows sinus rhythm. RESPIRATORY: No accessory muscle use. Lungs are clear to auscultation. Breath sounds equal bilaterally. No distress or dyspnea. LEFT chest tube in place to Pleur-evac drainage system to 20 cm suction. GASTROINTESTINAL: BS + x 4 quads. Abdomen soft, non-tender, nondistended. MUSCULOSKELETAL: Extremities without cyanosis, or edema. + peripheral pulses x 4 extremities. Warm with good capillary refill and sensation. MAEW. NEUROLOGICAL: Awake and alert. Normal speech and pattern. A/P Problem List: (1) Pneumothorax (2) Ribs, multiple fractures Assessment and Plan [place]: This is a 55-year-old male who was involved in a fall from a roof and landed on his left side. INJURIES: LEFT rib fx (multiple) LEFT PTX RIGHT rib fx (6) 4/13: LEFT CT in the ED Diet: Regular diet. Tolerating po diet. Encourage good po intake with each meal. Pulmonary: Encourage good pulmonary toileting. IS and a acapella at bedside and pt encouraged to use. Rationale for use explained to patient, and verbalized understanding. EZ pap. IS = 100-1200. Chest x-ray this morning still shows small apical PTX. Left chest tube remains in place to 20 cm suction. Repeat chest x-ray in the morning. 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 Robaxin. Lidoderm patch. 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 Added melatonin HS for sleep. Activity: OOB. PT ordered. GI prophylaxis: Pepcid po Bowel regimen: Colace and MOM. LBM: 0. Added lactulose daily, MiraLAX daily and bisacodyl PO/HI x 1 today. DVT prophylaxis: Mechanical VTE with SCDs. Chemical management with Lovenox 30 BID SQ. DC Planning: Case management consulted for assistance with final discharge disposition. Emotional support provided to patient and family at bedside and plan of care discussed. Discussed with RN at bedside. Patient is hemodynamically stable and being managed on the med/surg floor. Problem Qualifiers (1) Pneumothorax: Qualified Code: S27.0XXA - Traumatic pneumothorax, initial encounter Brenna Hull Aug 12, 2016 13:08
[2016-08-12] MEDS ORDERED: MELATONIN 5 MG TAB PO PRN (13:15)
[2016-08-12] MEDS: HYDROmorphone HCL PCA 6 MG/30 ML IV SCH ×2 (13:52→23:35)
[2016-08-12] MEDS ORDERED: oxyCODONE/ACETAMINOPHEN 5 MG/325 MG TAB PO PRN ×2 (14:15)
[2016-08-12 16:00] VITALS: BP 160/87; PULSE 63; RESP 18; TEMP 97.6; O2SAT 94
[2016-08-12 20:28] VITALS: BP 137/85; PULSE 61; RESP 17; TEMP 97.6; O2SAT 93
[2016-08-12] MEDS: MAGNESIUM HYDROXIDE SUSP 30 ML CUP PO SCH (21:01)
[2016-08-13] VITALS (8 sets, daily range): BP systolic 129–186; BP diastolic 79–88; PULSE 61–75; RESP 16–19; TEMP 96.4–98.5; O2SAT 92–100
[2016-08-13] MEDS: CHLORHEXIDINE GLUCONATE 2 % 1 PACK (2 CLOTHS) TOP SCH (02:42)
[2016-08-13] MEDS: KETOROLAC TROMETHAMINE 30 MG/ML (IVP) VIAL IV PUSH SCH ×3 (05:47→17:06)
[2016-08-13] MEDS: METHOCARBAMOL 500 MG TAB PO SCH ×3 (05:47→21:50)
[2016-08-13] MEDS: PCA - TOTAL MG DILAUDID DELIVERED PER SHIFT OTHER SCH (05:52)
--- NOTE | 2016-08-13 06:42 | RADRPT ---
EXAM DATE/TIME: 08/13/2016 05:32 [facility] COMPARISON: CHEST SINGLE AP, August 12, 2016, 5:18. INDICATIONS : Shortness of breath, possible pulmonary disease. MEDICAL HISTORY : None. SURGICAL HISTORY : None. ENCOUNTER: Subsequent ACUITY: 1 week PAIN SCORE: 5/10 LOCATION: Left chest FINDINGS: The cardiac silhouette is normal in transverse diameter. There is prominence of the central pulmonary vasculature with indistinct vascular margins compatible with vascular congestion but no evidence of overt failure. Left chest tube is in place with small left apical pneumothorax. There is subcutaneous emphysema along the left lateral chest wall. CONCLUSION: 1. Pulmonary vascular congestion new when compared to the prior study. 2. Tiny left apical pneumothorax Greg Rizo MD on August 13, 2016 at 6:40 Board Certified Radiologist. This report was verified electronically.
[2016-08-13] MEDS: HYDROmorphone HCL PCA 6 MG/30 ML IV SCH (06:56)
--- NOTE | 2016-08-13 08:00 | HHI.FF ---
Face to Face Verification Diagnosis: (1) Pneumothorax (2) Ribs, multiple fractures Physical Therapy Order: Evaluate and Treat, Improve ambulation, Strength and gait training Home Health Nursing Order: Medical education Signs/symptoms of disease process Medication education-adverse effect Nursing assessment with vital signs I have seen patient Prudencio Lee on 08/13/16. My clinical findings support the need for the requested home health care services because: Ltd mobility - disease progression Deconditioned w/ increased weakness Limited ability to care for self High risk of falls I certify that my clinical findings support that this patient is homebound because: Unsteady gait/balance Unsafe to leave home unassisted Unable to use public transportation Brenna Hull Aug 13, 2016 08:00
[2016-08-13] MEDS: POLYETHYLENE GLYCOL 17 GM PKG PO SCH (08:40)
[2016-08-13] MEDS: FAMOTIDINE 20 MG TAB PO SCH ×2 (08:40→19:50)
[2016-08-13] MEDS: DOCUSATE SODIUM 100 MG CAP PO SCH ×2 (08:40→19:53)
[2016-08-13] MEDS: LIDOCAINE HCL 5% PATCH T-DERMAL SCH (08:41)
[2016-08-13] MEDS: LACTULOSE SYRUP 20 GM/30 ML CUP PO SCH (08:42)
[2016-08-13] MEDS: oxyCODONE/ACETAMINOPHEN 5 MG/325 MG TAB PO PRN ×4 (08:42→21:50)
[2016-08-13] MEDS: ENOXAPARIN SODIUM 30 MG/0.3 ML SYRINGE SQ SCH ×2 (08:43→19:50)
[2016-08-13] MEDS: SODIUM CHLORIDE 0.9% FLUSH 10 ML FLUSH IV FLUSH SCH ×2 (09:00→19:53)
[2016-08-13] MEDS ORDERED: DOCU1CAP39 PO (09:14)
[2016-08-13] MEDS ORDERED: MILKSUS PO (09:14)
[2016-08-13] MEDS ORDERED: MELA1TAB22 PO (09:14)
--- NOTE | 2016-08-13 09:31 | HHI.PR ---
Subjective Subjective Notes PTD: 3 Patient is still painful, especially when he coughs. Patient states he feels his ribs "popping." He states he's been getting out of bed to the chair. Objective Vitals/I&O Vital Signs Date Time Temp Pulse Resp B/P Pulse Ox O2 Delivery O2 Flow Rate FiO2 08/13/16 06:56 17 08/13/16 04:00 98.5 71 150/88 97 08/12/16 21:01 Room Air 08/11/16 08:21 2.00 Labs Laboratory Tests Test 08/12/16 05:04 White Blood Count 5.8 TH/MM3 Red Blood Count 3.81 MIL/MM3 Hemoglobin 12.0 GM/DL Hematocrit 35.4 % Mean Corpuscular Volume 92.8 FL Mean Corpuscular Hemoglobin 31.4 PG Mean Corpuscular Hemoglobin 33.9 % Concent Red Cell Distribution Width 13.2 % Platelet Count 165 TH/MM3 Mean Platelet Volume 9.7 FL Neutrophils (%) (Auto) 52.8 % Lymphocytes (%) (Auto) 34.1 % Monocytes (%) (Auto) 10.1 % Eosinophils (%) (Auto) 2.7 % Basophils (%) (Auto) 0.3 % Neutrophils # (Auto) 3.1 TH/MM3 Lymphocytes # (Auto) 2.0 TH/MM3 Monocytes # (Auto) 0.6 TH/MM3 Eosinophils # (Auto) 0.2 TH/MM3 Basophils # (Auto) 0.0 TH/MM3 CBC Comment DIFF FINAL Differential Comment Sodium Level 139 MEQ/L Potassium Level 3.9 MEQ/L Chloride Level 106 MEQ/L Carbon Dioxide Level 29.1 MEQ/L Anion Gap 4 MEQ/L Blood Urea Nitrogen 17 MG/DL Creatinine 0.92 MG/DL Estimat Glomerular Filtration 85 ML/MIN Rate Random Glucose 98 MG/DL Calcium Level 8.2 MG/DL Magnesium Level 2.1 MG/DL Total Bilirubin 0.4 MG/DL Aspartate Amino Transf 76 U/L (AST/SGOT) Alanine Aminotransferase 95 U/L (ALT/SGPT) Alkaline Phosphatase 68 U/L Total Protein 6.4 GM/DL Albumin 2.8 GM/DL Radiology Last Impressions Chest X-Ray 08/12/16 0600 Signed Impressions: Service Date/Time: Friday, August 12, 2016 05:18 - CONCLUSION: 1. Tiny left apical pneumothorax without tension Greg Rizo MD Thoracic Spine CT 08/10/16 Signed Impressions: Service Date/Time: July 15:15 - CONCLUSION: Normal examination. William Falcon MD Head CT 08/10/16 Signed Impressions: Service Date/Time: July 14:46 - CONCLUSION: No acute intracranial abnormality is identified. Catrachito Hurley MD Chest CT 08/10/16 Signed Impressions: Service Date/Time: July 14:54 - CONCLUSION: Multiple left-sided rib fractures with a small left pneumothorax. Small pleural effusion. Lungs are grossly clear. William Falcon MD Cervical Spine CT 08/10/16 Signed Impressions: Service Date/Time: July 14:46 - CONCLUSION: 1. No acute cervical spine abnormality is identified. There are degenerative changes, as above. 2. Small left apical pneumothorax is visualized. Please refer to chest CT report for further description. Catrachito Hurley MD Abdomen/Pelvis CT 08/10/16 Signed Impressions: Service Date/Time: July 14:54 - CONCLUSION: 1. There is a left posterior lateral seventh rib fracture and a right lateral sixth rib fracture. A left pneumothorax is present. 2. No acute abnormality is identified within the abdomen or pelvis. 3. There is moderate atherosclerotic disease. Catrachito Hurley MD Narrative Exam GENERAL: This is a 55-year-old male sitting up in bed in no acute distress. SKIN: Warm and dry. HEAD: Atraumatic. Normocephalic. EYES: PERRLA ENT: No nasal bleeding or discharge. Mucous membranes pink and moist. NECK: Trachea midline. No JVD. CARDIOVASCULAR: Regular rate and rhythm. CM shows sinus rhythm. RESPIRATORY: No accessory muscle use. Lungs are clear to auscultation. Breath sounds equal bilaterally. No distress or dyspnea. LEFT chest tube in place to Pleur-evac drainage system. GASTROINTESTINAL: BS + x 4 quads. Abdomen soft, non-tender, nondistended. MUSCULOSKELETAL: Extremities without cyanosis, or edema. + peripheral pulses x 4 extremities. Warm with good capillary refill and sensation. MAEW. NEUROLOGICAL: Awake and alert. Normal speech and pattern. A/P Problem List: (1) Pneumothorax (2) Ribs, multiple fractures Assessment and Plan [place]: This is a 55-year-old male who was involved in a fall from a roof and landed on his left side. INJURIES: LEFT rib fx (multiple) LEFT PTX RIGHT rib fx (6) 08/10: LEFT CT in the ED Diet: Regular diet. Tolerating po diet. Encourage good po intake with each meal. Pulmonary: Encourage good pulmonary toileting. IS and a acapella at bedside and pt encouraged to use. Rationale for use explained to patient, and verbalized understanding. EZ pap. IS = 100-1500. Chest x-ray this morning still shows tiny apical PTX. Left lateral chest tube removed without incident. Vaseline gauze with 4 x 4 dressing applied and secured with Elastoplast tape. Repeat chest x-ray and labs in the morning. PAIN Management: Percocet po. 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 Robaxin. Lidoderm patch. . Melatonin HS for sleep. Activity: OOB. PT ordered. GI prophylaxis: Pepcid po Bowel regimen: Colace and MOM. . Lactulose daily, MiraLAX daily. LBM: 0 DVT prophylaxis: Mechanical VTE with SCDs. Chemical management with Lovenox 30 BID SQ. DC Planning: Case management consulted for assistance with final discharge disposition. PT recommend home health PT, and order has be placed for CM assist. Plan for DC tomorrow. Emotional support provided to patient and family at bedside and plan of care discussed. Discussed with RN at bedside. Patient is hemodynamically stable and being managed on the med/surg floor. Problem Qualifiers (1) Pneumothorax: Qualified Code: S27.0XXA - Traumatic pneumothorax, initial encounter Brenna Hull Aug 13, 2016 09:31
[2016-08-13] MEDS: MAGNESIUM HYDROXIDE SUSP 30 ML CUP PO SCH (19:53)
[2016-08-14] VITALS (8 sets, daily range): BP systolic 154–191; BP diastolic 82–97; PULSE 70–84; RESP 18–20; TEMP 96.7–102.3; O2SAT 92–96
[2016-08-14] MEDS: KETOROLAC TROMETHAMINE 30 MG/ML (IVP) VIAL IV PUSH SCH ×4 (00:15→18:12)
[2016-08-14] MEDS: CHLORHEXIDINE GLUCONATE 2 % 1 PACK (2 CLOTHS) TOP SCH (00:53)
[2016-08-14] MEDS ORDERED: ACETAMINOPHEN 325 MG TAB PO PRN (01:00)
[2016-08-14] MEDS: METHOCARBAMOL 500 MG TAB PO SCH ×3 (05:33→21:36)
--- NOTE | 2016-08-14 07:15 | RADRPT ---
EXAM DATE/TIME: 08/14/2016 06:09 [facility] COMPARISON: CHEST SINGLE AP, August 13, 2016, 5:32. INDICATIONS : Coughing and pain in left chest, chest tube removed yesterday MEDICAL HISTORY : pneumothorax SURGICAL HISTORY : chest tube ENCOUNTER: Subsequent ACUITY: 1 week PAIN SCORE: 8/10 LOCATION: Bilateral chest FINDINGS: The left chest tube has been removed. There is a tiny left pneumothorax with 3 mm of separation. Ther e is a mild infiltrate in the left lung base. The right lung is clear. The heart size is within sarmad l limits. No definite pleural effusions are demonstrated. The bony structures are stable. CONCLUSION: Tiny left pneumothorax a 3 mm of separation. Mild infiltrate left lung base. Dino Erickson MD on August 14, 2016 at 7:13 Board Certified Radiologist. This report was verified electronically.
[2016-08-14 07:20] LABS: AUTOMATED NEUTROPHIL # 8.3 TH/MM3 (1.8-7.7); BASOPHIL % 0.3 % (0.0-2.0); EOSINOPHIL # 0.2 TH/MM3 (0-0.4); EOSINOPHIL % 2.3 % (0.0-4.0); HEMATOCRIT 37.6 % (39.0-51.0); HEMO FLAGS DIFF FINAL; LYMPH % 11.8 % (9.0-44.0); LYMPHOCYTE # 1.3 TH/MM3 (1.0-4.8); MEAN CELL VOLUME 90.9 FL (80.0-100.0); MEAN CORPUSCULAR HEMOGLOBIN 31.6 PG (27.0-34.0); MEAN CORPUSCULAR HGB CONC 34.7 % (32.0-36.0); MONO % 8.5 % (0.0-8.0); NEUT % 77.1 % (16.0-70.0); PLATELET COUNT 196 TH/MM3 (150-450); RED BLOOD COUNT 4.14 MIL/MM3 (4.50-5.90); RED CELL DISTRIBUTION WIDTH 12.4 % (11.6-17.2); WHITE BLOOD COUNT 10.8 TH/MM3 (4.0-11.0)
[2016-08-14 07:55] LABS: ANION GAP 4 MEQ/L (5-15); AST (GOT) 56 U/L (15-37); BICARBONATE 28.2 MEQ/L (21.0-32.0); BLOOD UREA NITROGEN 11 MG/DL (7-18); CHLORIDE 103 MEQ/L (98-107); GLOMERULAR FILTRATION RATE 107 ML/MIN (>89); POTASSIUM 4.3 MEQ/L (3.5-5.1); SODIUM (NA) 135 MEQ/L (136-145)
[2016-08-14 07:57] LABS: ALKALINE PHOSPHATASE 69 U/L (45-117); ALT (GPT) 78 U/L (12-78); TOTAL BILIRUBIN ADULT 1.1 MG/DL (0.2-1.0)
[2016-08-14] MEDS: DOCUSATE SODIUM 100 MG CAP PO SCH ×2 (08:41→21:36)
[2016-08-14] MEDS: FAMOTIDINE 20 MG TAB PO SCH ×2 (08:41→21:36)
[2016-08-14] MEDS: LIDOCAINE HCL 5% PATCH T-DERMAL SCH (08:42)
[2016-08-14] MEDS: oxyCODONE/ACETAMINOPHEN 5 MG/325 MG TAB PO PRN ×4 (08:42→21:55)
[2016-08-14] MEDS: ENOXAPARIN SODIUM 30 MG/0.3 ML SYRINGE SQ SCH ×2 (08:45→21:36)
[2016-08-14] MEDS: POLYETHYLENE GLYCOL 17 GM PKG PO SCH (08:51)
[2016-08-14] MEDS: LACTULOSE SYRUP 20 GM/30 ML CUP PO SCH (08:51)
[2016-08-14] MEDS: SODIUM CHLORIDE 0.9% FLUSH 10 ML FLUSH IV FLUSH SCH ×2 (08:52→21:36)
[2016-08-14] MEDS ORDERED: BISACODYL EC 5 MG TABEC PO ONE (09:00)
[2016-08-14] MEDS ORDERED: BISACODYL 10 MG SUPP RECTAL ONE (09:00)
[2016-08-14] MEDS ORDERED: OXYC1TAB63 PO (11:33)
--- NOTE | 2016-08-14 12:26 | HHI.PR ---
Subjective Subjective Notes PTD: 4 Patient sitting up in bed. On 2 L nasal cannula. Sats equal 97%. Patient states, "I had a bed night last night. I had a fever. I'm coughing up a lot of phlegm." Patient complains of pain to his left rib area. Objective Vitals/I&O Vital Signs Date Time Temp Pulse Resp B/P Pulse Ox O2 Delivery O2 Flow Rate FiO2 08/14/16 08:00 98.2 73 19 155/93 92 08/13/16 20:40 Nasal Cannula 2.00 Labs Laboratory Tests Test 08/14/16 07:01 White Blood Count 10.8 Red Blood Count 4.14 Hemoglobin 13.1 Hematocrit 37.6 Mean Corpuscular Volume 90.9 Mean Corpuscular Hemoglobin 31.6 Mean Corpuscular Hemoglobin 34.7 Concent Red Cell Distribution Width 12.4 Platelet Count 196 Mean Platelet Volume 9.1 Neutrophils (%) (Auto) 77.1 Lymphocytes (%) (Auto) 11.8 Monocytes (%) (Auto) 8.5 Eosinophils (%) (Auto) 2.3 Basophils (%) (Auto) 0.3 Neutrophils # (Auto) 8.3 Lymphocytes # (Auto) 1.3 Monocytes # (Auto) 0.9 Eosinophils # (Auto) 0.2 Basophils # (Auto) 0.0 CBC Comment DIFF FINAL Differential Comment Sodium Level 135 Potassium Level 4.3 Chloride Level 103 Carbon Dioxide Level 28.2 Anion Gap 4 Blood Urea Nitrogen 11 Creatinine 0.75 Estimat Glomerular Filtration 107 Rate Random Glucose 106 Calcium Level 8.5 Magnesium Level 2.0 Total Bilirubin 1.1 Aspartate Amino Transf 56 (AST/SGOT) Alanine Aminotransferase 78 (ALT/SGPT) Alkaline Phosphatase 69 Total Protein 6.8 Albumin 3.0 Radiology Last Impressions Chest X-Ray 08/12/16 0600 Signed Impressions: Service Date/Time: Friday, August 12, 2016 05:18 - CONCLUSION: 1. Tiny left apical pneumothorax without tension Greg Rizo MD Thoracic Spine CT 08/10/16 0000 Signed Impressions: Service Date/Time: July 15:15 - CONCLUSION: Normal examination. William Falcon MD Head CT 08/10/16 0000 Signed Impressions: Service Date/Time: July 14:46 - CONCLUSION: No acute intracranial abnormality is identified. Catrachito Hurley MD Chest CT 08/10/16 0000 Signed Impressions: Service Date/Time: July 14:54 - CONCLUSION: Multiple left-sided rib fractures with a small left pneumothorax. Small pleural effusion. Lungs are grossly clear. William Falcon MD Cervical Spine CT 08/10/16 0000 Signed Impressions: Service Date/Time: July 14:46 - CONCLUSION: 1. No acute cervical spine abnormality is identified. There are degenerative changes, as above. 2. Small left apical pneumothorax is visualized. Please refer to chest CT report for further description. Catrachito Hurley MD Abdomen/Pelvis CT 08/10/16 0000 Signed Impressions: Service Date/Time: July 14:54 - CONCLUSION: 1. There is a left posterior lateral seventh rib fracture and a right lateral sixth rib fracture. A left pneumothorax is present. 2. No acute abnormality is identified within the abdomen or pelvis. 3. There is moderate atherosclerotic disease. Catrachito Hurley MD Narrative Exam GENERAL: This is a 55-year-old male sitting up in bed in no acute distress. SKIN: Warm and dry. HEAD: Atraumatic. Normocephalic. EYES: PERRLA ENT: No nasal bleeding or discharge. Mucous membranes pink and moist. NECK: Trachea midline. No JVD. CARDIOVASCULAR: Regular rate and rhythm. CM shows sinus rhythm. RESPIRATORY: No accessory muscle use. Lungs are clear to auscultation. Breath sounds equal bilaterally. No distress or dyspnea. GASTROINTESTINAL: BS + x 4 quads. Abdomen soft, non-tender, nondistended. MUSCULOSKELETAL: Extremities without cyanosis, or edema. + peripheral pulses x 4 extremities. Warm with good capillary refill and sensation. MAEW. NEUROLOGICAL: Awake and alert. Normal speech and pattern. A/P Problem List: (1) Pneumothorax (2) Ribs, multiple fractures Assessment and Plan [place]: This is a 55-year-old male who was involved in a fall from a roof and landed on his left side. INJURIES: LEFT rib fx (multiple) LEFT PTX RIGHT rib fx (6) 08/10: LEFT CT in the ED Diet: Regular diet. Tolerating po diet. Encourage good po intake with each meal. Pulmonary: Encourage good pulmonary toileting. IS and a acapella at bedside and pt encouraged to use. Rationale for use explained to patient, and verbalized understanding. EZ pap. IS = [id number]. Chest x-ray this morning still shows tiny LEFT apical PTX. However there is a new left lower lobe infiltrate. (Patient stated he had a fever last night however, there is no documentation to support this.) Repeat chest x-ray and labs in the morning. Begin Levaquin by mouth PAIN Management: Percocet po. Toradol. Robaxin. Lidoderm patch. . Melatonin HS for sleep. Activity: OOB. PT ordered. Encouraged out of bed. Discussed with the patient the importance of getting out of bed, and walking in the hallways. GI prophylaxis: Pepcid po Bowel regimen: Colace and MOM. . Lactulose daily, MiraLAX daily. LBM: 0. Intensified with bisacodyl PO/WV 1 today. DVT prophylaxis: Mechanical VTE with SCDs. Chemical management with Lovenox 30 BID SQ. DC Planning: Case management consulted for assistance with final discharge disposition. PT recommend home health PT, and order has be placed. Plan for discharge tomorrow, as the patient has not ambulated more than from bed to chair. Emotional support provided to patient and family at bedside and plan of care discussed. Discussed with RN at bedside. Patient is hemodynamically stable and being managed on the med/surg floor. The exam, history, and the medical decision-making described in the above note were completed with the assistance of the mid-level provider. I reviewed and agree with the findings presented. I attest that I had a [id number] encounter with the patient on the same day, and personally performed and documented my assessment and findings in the medical record. Problem Qualifiers (1) Pneumothorax: Qualified Code: S27.0XXA - Traumatic pneumothorax, initial encounter (2) Ribs, multiple fractures: Qualified Code: S22.42XA - Closed fracture of multiple ribs of left side, initial encounter Brenna Hull Aug 14, 2016 12:26 Geovani Casarez MD Aug 23, 2016 07:53
[2016-08-14] MEDS: LEVOFLOXACIN 750 MG TAB PO SCH (13:28)
[2016-08-14] MEDS ORDERED: WALKER WHEELS/F1 MIS (13:57)
[2016-08-14] MEDS: MAGNESIUM HYDROXIDE SUSP 30 ML CUP PO SCH (21:36)
[2016-08-15 00:23] VITALS: BP 138/85; PULSE 74; RESP 18; TEMP 98.6; O2SAT 96
[2016-08-15] MEDS: KETOROLAC TROMETHAMINE 30 MG/ML (IVP) VIAL IV PUSH SCH ×2 (00:57→06:05)
[2016-08-15] MEDS: oxyCODONE/ACETAMINOPHEN 5 MG/325 MG TAB PO PRN ×3 (02:11→10:13)
[2016-08-15 04:00] VITALS: BP 167/96; PULSE 68; RESP 18; TEMP 98.3; O2SAT 95
[2016-08-15] MEDS: CHLORHEXIDINE GLUCONATE 2 % 1 PACK (2 CLOTHS) TOP SCH (04:00)
[2016-08-15] MEDS: METHOCARBAMOL 500 MG TAB PO SCH (06:06)
--- NOTE | 2016-08-15 06:13 | RADRPT ---
EXAM DATE/TIME: 08/15/2016 05:13 [facility] COMPARISON: CHEST SINGLE AP, August 14, 2016, 6:09. CHEST SINGLE AP, August 13, 2016, 5:32. INDICATIONS : Coughing, chest pain, evaluate left side pneumothorax MEDICAL HISTORY : pneumothorax SURGICAL HISTORY : chest tube ENCOUNTER: Subsequent ACUITY: 1 week PAIN SCORE: 5/10 LOCATION: Left chest FINDINGS: A single view of the chest demonstrates stable infiltrate left lung base with displaced fractures of left sixth and seventh ribs. Small left pleural effusion unchanged. Right lung remains clear. The ca rdiomediastinal contours are unremarkable. CONCLUSION: Pulmonary infiltrate left lung base with displaced rib fractures and pleural effusion similar to the previous film. William Falcon MD on August 15, 2016 at 6:11 Board Certified Radiologist. This report was verified electronically.
[2016-08-15 07:20] LABS: AUTOMATED NEUTROPHIL # 8.1 TH/MM3 (1.8-7.7); BASOPHIL % 0.4 % (0.0-2.0); EOSINOPHIL # 0.5 TH/MM3 (0-0.4); EOSINOPHIL % 4.5 % (0.0-4.0); HEMATOCRIT 35.4 % (39.0-51.0); HEMO FLAGS DIFF FINAL; LYMPH % 12.7 % (9.0-44.0); LYMPHOCYTE # 1.4 TH/MM3 (1.0-4.8); MEAN CELL VOLUME 91.3 FL (80.0-100.0); MEAN CORPUSCULAR HEMOGLOBIN 31.6 PG (27.0-34.0); MEAN CORPUSCULAR HGB CONC 34.6 % (32.0-36.0); MONO % 10.1 % (0.0-8.0); NEUT % 72.3 % (16.0-70.0); PLATELET COUNT 204 TH/MM3 (150-450); RED BLOOD COUNT 3.88 MIL/MM3 (4.50-5.90); RED CELL DISTRIBUTION WIDTH 12.8 % (11.6-17.2); WHITE BLOOD COUNT 11.3 TH/MM3 (4.0-11.0)
[2016-08-15] MEDS ORDERED: MAGNESIUM CITRATE SOLN 300 ML BTL PO ONE (07:45)
[2016-08-15 07:47] LABS: ALKALINE PHOSPHATASE 67 U/L (45-117); ALT (GPT) 61 U/L (12-78); ANION GAP 6 MEQ/L (5-15); AST (GOT) 39 U/L (15-37); BICARBONATE 28.7 MEQ/L (21.0-32.0); BLOOD UREA NITROGEN 12 MG/DL (7-18); CHLORIDE 100 MEQ/L (98-107); GLOMERULAR FILTRATION RATE 106 ML/MIN (>89); POTASSIUM 4.2 MEQ/L (3.5-5.1); SODIUM (NA) 135 MEQ/L (136-145); TOTAL BILIRUBIN ADULT 0.8 MG/DL (0.2-1.0)
[2016-08-15 08:00] VITALS: BP_SYST 152; BP_SYST 154; BP_DIAS 80; BP_DIAS 90; PULSE 69; PULSE 73; RESP 16; RESP 18; TEMP 96.9; TEMP 97.4; O2SAT 92; O2SAT 95
[2016-08-15] MEDS: LACTULOSE SYRUP 20 GM/30 ML CUP PO SCH (09:00)
[2016-08-15] MEDS: SODIUM CHLORIDE 0.9% FLUSH 10 ML FLUSH IV FLUSH SCH (09:00)
[2016-08-15] MEDS: LIDOCAINE HCL 5% PATCH T-DERMAL SCH (09:16)
[2016-08-15] MEDS: POLYETHYLENE GLYCOL 17 GM PKG PO SCH (09:17)
[2016-08-15] MEDS: LEVOFLOXACIN 750 MG TAB PO SCH (09:17)
[2016-08-15] MEDS: FAMOTIDINE 20 MG TAB PO SCH (09:17)
[2016-08-15] MEDS: ENOXAPARIN SODIUM 30 MG/0.3 ML SYRINGE SQ SCH (09:17)
[2016-08-15] MEDS: DOCUSATE SODIUM 100 MG CAP PO SCH (09:17)
[2016-08-15] MEDS ORDERED: LEVA750T PO (12:00)
--- NOTE | 2016-08-15 12:06 | HHI.DS ---
Discharge Summary Admission Date Aug 10, 2016 at 16:36 Discharge Date: Aug 15, 2016 Admitting Diagnosis pneumothorax (1) Pneumothorax Diagnosis: Principal (2) Ribs, multiple fractures Diagnosis: Principal Brief History Fall from a roof. CBC/BMP: 08/15/16 0639 08/15/16 0639 Significant Findings Laboratory Tests Test 08/14/16 08/15/16 07:01 06:39 Red Blood Count 4.14 MIL/MM3 3.88 MIL/MM3 (4.50-5.90) (4.50-5.90) Hematocrit 37.6 % 35.4 % (39.0-51.0) (39.0-51.0) Neutrophils (%) (Auto) 77.1 % 72.3 % (16.0-70.0) (16.0-70.0) Monocytes (%) (Auto) 8.5 % (0.0-8.0) 10.1 % (0.0-8.0) Neutrophils # (Auto) 8.3 TH/MM3 8.1 TH/MM3 (1.8-7.7) (1.8-7.7) Sodium Level 135 MEQ/L 135 MEQ/L (136-145) (136-145) Anion Gap 4 MEQ/L (5-15) Total Bilirubin 1.1 MG/DL (0.2-1.0) Aspartate Amino Transf 56 U/L (15-37) 39 U/L (15-37) (AST/SGOT) Albumin 3.0 GM/DL 2.8 GM/DL (3.4-5.0) (3.4-5.0) White Blood Count 11.3 TH/MM3 (4.0-11.0) Hemoglobin 12.2 GM/DL (13.0-17.0) Eosinophils (%) (Auto) 4.5 % (0.0-4.0) Monocytes # (Auto) 1.1 TH/MM3 (0-0.9) Eosinophils # (Auto) 0.5 TH/MM3 (0-0.4) Calcium Level 8.4 MG/DL (8.5-10.1) Imaging Last Impressions Chest X-Ray 08/15/16 0600 Signed Impressions: Service Date/Time: Monday, August 15, 2016 05:13 - CONCLUSION: Pulmonary infiltrate left lung base with displaced rib fractures and pleural effusion similar to the previous film. William Falcon MD Thoracic Spine CT 08/10/16 Signed Impressions: Service Date/Time: July 15:15 - CONCLUSION: Normal examination. William Falcon MD Head CT 08/10/16 Signed Impressions: Service Date/Time: July 14:46 - CONCLUSION: No acute intracranial abnormality is identified. Catrachito Hurley MD Chest CT 08/10/16 Signed Impressions: Service Date/Time: July 14:54 - CONCLUSION: Multiple left-sided rib fractures with a small left pneumothorax. Small pleural effusion. Lungs are grossly clear. William Falcon MD Cervical Spine CT 08/10/16 Signed Impressions: Service Date/Time: July 14:46 - CONCLUSION: 1. No acute cervical spine abnormality is identified. There are degenerative changes, as above. 2. Small left apical pneumothorax is visualized. Please refer to chest CT report for further description. Catrachito Hurley MD Abdomen/Pelvis CT 08/10/16 Signed Impressions: Service Date/Time: July 14:54 - CONCLUSION: 1. There is a left posterior lateral seventh rib fracture and a right lateral sixth rib fracture. A left pneumothorax is present. 2. No acute abnormality is identified within the abdomen or pelvis. 3. There is moderate atherosclerotic disease. Catrachito Hurley MD PE at Discharge GENERAL: This is a 55-year-old male sitting up in bed in no acute distress. SKIN: Warm and dry. HEAD: Atraumatic. Normocephalic. EYES: PERRLA ENT: No nasal bleeding or discharge. Mucous membranes pink and moist. NECK: Trachea midline. No JVD. CARDIOVASCULAR: Regular rate and rhythm. CM shows sinus rhythm. RESPIRATORY: No accessory muscle use. Lungs are clear to auscultation. Breath sounds equal bilaterally. No distress or dyspnea. Old chest tube dressing D and I. GASTROINTESTINAL: BS + x 4 quads. Abdomen soft, non-tender, nondistended. MUSCULOSKELETAL: Extremities without cyanosis, or edema. + peripheral pulses x 4 extremities. Warm with good capillary refill and sensation. MAEW. NEUROLOGICAL: Awake and alert. Normal speech and pattern. Hospital Course [place]: This is a 55-year-old male who was involved in a fall from a roof and landed on his left side. INJURIES: LEFT rib fx (multiple) LEFT PTX RIGHT rib fx (6) 08/10: LEFT CT in the ED 08/13: Chest tube removed at bedside Patient states he is doing better, and says that he wants to go home. The patient is now tolerating a po diet. Eating and drinking well. Pain is being managed well with PO pain medications, and patient is being a provided with a script for pain meds upon discharge. (NO driving while taking narcotic pain medication enforced to patient.) Pt is having regular bowel movements, and have recommended to patient to continue with stool softeners while taking narcotic pain medications to prevent constipation. Pt has been participating in PT and OT while admitted at [facility] and has been ambulating with their assistance and independently . Home PT ordered. All follow up appointments have been provided and discussed with the patient. It is recommended that the patient keeps all his follow up appointments for continued recovery. Therefore, the patient is stable to be safely discharged home from a trauma surgery standpoint. Thank you for allowing us to participate in his care. We wish Prudencio the best in his recovery. Pt Condition on Discharge: Stable Discharge Disposition: Disch w/ Home Health Serv Discharge Instructions DIET: Follow Instructions for: As Tolerated, No Restrictions Activities you can perform: Regular-No Restrictions, Shower Only-No Bath Brenna Hull Aug 15, 2016 12:06
[2016-08-15] MEDS ORDERED: METH500T3 PO (12:19)
== END 2016-08-15 12:55 | disposition home health service (06) | DRG 200 ==
LOC: NEPC 14:06 → NEDA 16:36 → N03B 18:47 → N06B 08-11 10:23
PROVIDERS: ADMIT Surgery Trauma Surgery; ATTEND Surgery Trauma Surgery
PROC: 0W9B30Z Drainage of Left Pleural Cavity with Drainage Device, Percutaneous Approach (ICD-10-PCS; principal; 2016-08-10)
DX: S27.0XXA Traumatic pneumothorax, initial encounter (principal); S22.42XA Multiple fractures of ribs, left side, initial encounter for closed fracture; S22.31XA Fracture of one rib, right side, initial encounter for closed fracture; W13.2XXA Fall from, out of or through roof, initial encounter; F17.210 Nicotine dependence, cigarettes, uncomplicated
CPT/HCPCS: 32551; 70450; 71010; 71260; 72125; 72128; 74177; 80048; 80053; 83735; 85025; 94150; 94640; 94667; 94668; 96374; J1170; J1650; J1885; J2250; J7030; Q9967

== ENCOUNTER 2016-08-24 12:56 | Emergency (ER) | payer OTHER ==
[~2016-08-24] VITALS: Ht 182.9 cm; Wt 86.0 kg
[~2016-08-24 12:56] MED LIST changes: -CYCL-36 PO; +DOCU1CAP39 PO; -GABA100C4 PO; +LEVA750T PO; +MELA1TAB22 PO; +METH500T3 PO; +MILKSUS PO; -NAPR550 PO; +OXYC1TAB63 PO; -TRIA.1%T TOP; +WALKER WHEELS/F1 MIS; -Z.0.NO CURRENT MEDS
[2016-08-24 13:16] VITALS: BP 141/92; PULSE 87; RESP 20; TEMP 97.7; O2SAT 99
[2016-08-24 14:16] VITALS: BP 137/89; PULSE 82; RESP 18; O2SAT 99
[2016-08-24] MEDS ORDERED: ULTR50TA5 PO (14:20)
--- NOTE | 2016-08-24 14:27 | PD ---
HPI Chief Complaint: Pain: Acute or Chronic Time Seen by Provider: 14:14 Travel History International Travel<30 days: No Contact w/Intl Traveler<30days: No Traveled to known affect area: No History of Present Illness HPI The patient is a 55-year-old male who presents to the emergency department for left-sided chest pain. The patient was admitted to the hospital last week after he fell off a roof, fracturing several ribs on the left aspect of the chest wall. The patient had a chest tube placed for the pneumothorax, was admitted to the trauma service, and subsequent discharged home after the chest tube was removed. The patient complains of continuing pain over the left lateral chest wall that is worse with inspiration, coughing, sneezing, and moving. The patient was seen in urgent care earlier today where he had a chest x-ray obtained which revealed fluid on the left lung and was referred to the emergency department for further evaluation by the trauma service. The patient does complain of a dry nonproductive cough, denies any fever. PFSH Past Medical History Diminished Hearing: No Social History Alcohol Use: No Tobacco Use: Yes (4-5 CIGS/DAILY) Substance Use: No Allergies-Medications (Allergen,Severity, Reaction): Coded Allergies: No Known Allergies (Verified , 08/24/16) Reported Meds & Prescriptions Reported Meds & Active Scripts Active Percocet (Oxycodone-Acetaminophen) 5-325 mg Tab 1 Tab PO Q6H PRN Ibuprofen 600 Mg Tab 600 Mg PO Q6H PRN Reported Ultram (Tramadol HCl) 50 Mg Tab 50 Mg PO Q4H PRN Review of Systems Except as stated in HPI: all other systems reviewed are Neg General / Constitutional: No: Fever HENT: No: Lightheadedness Cardiovascular: Positive: Chest Pain or Discomfort (left chest wall pain) Respiratory: Positive: Cough, Pleuritic Pain, No: Shortness of Breath Gastrointestinal: No: Nausea, Vomiting, Abdominal Pain Neurologic: No: Dizziness Physical Exam Narrative GENERAL: Awake, alert, 55-year-old male who appears his stated age and is in no acute respiratory distress. SKIN: Focused skin assessment warm/dry. HEAD: Atraumatic. Normocephalic. EYES: Pupils equal and round. No scleral icterus. No injection or drainage. ENT: No nasal bleeding or discharge. Mucous membranes pink and moist. NECK: Trachea midline. No JVD. CARDIOVASCULAR: Regular rate and rhythm. No murmur appreciated. Tender to palpation over the left lateral chest wall, healing wound from chest tube noted. Pain worse with palpation. RESPIRATORY: No accessory muscle use. Clear to auscultation. Breath sounds equal bilaterally. GASTROINTESTINAL: Abdomen soft, non-tender, nondistended. No tenderness in the left upper quadrant. MUSCULOSKELETAL: No obvious deformities. No clubbing. No cyanosis. No edema. NEUROLOGICAL: Awake and alert. No obvious cranial nerve deficits. Motor grossly within normal limits. Normal speech. PSYCHIATRIC: Appropriate mood and affect; insight and judgment normal. Data Data Last Documented VS Vital Signs Date Time Temp Pulse Resp B/P Pulse Ox O2 Delivery O2 Flow Rate FiO2 08/24/16 15:54 65 18 119/63 97 Room Air Orders Chest, Single Ap (08/24/16 ) Complete Blood Count With Diff (08/24/16 14:17) Basic Metabolic Panel (Bmp) (08/24/16 14:17) Ketorolac Inj (Toradol Inj) (08/24/16 14:30) Morphine Inj (Morphine Inj) (08/24/16 14:30) Ondansetron Inj (Zofran Inj) (08/24/16 14:30) Ct Thorax/ Chest Wo Iv Contras (08/24/16 ) Labs Laboratory Tests Test 08/24/16 14:29 White Blood Count 9.6 TH/MM3 Red Blood Count 4.55 MIL/MM3 Hemoglobin 14.7 GM/DL Hematocrit 41.8 % Mean Corpuscular Volume 91.9 FL Mean Corpuscular Hemoglobin 32.4 PG Mean Corpuscular Hemoglobin 35.3 % Concent Red Cell Distribution Width 13.1 % Platelet Count 462 TH/MM3 Mean Platelet Volume 7.4 FL Neutrophils (%) (Auto) 58.1 % Lymphocytes (%) (Auto) 22.2 % Monocytes (%) (Auto) 6.3 % Eosinophils (%) (Auto) 11.9 % Basophils (%) (Auto) 1.5 % Neutrophils # (Auto) 5.6 TH/MM3 Lymphocytes # (Auto) 2.1 TH/MM3 Monocytes # (Auto) 0.6 TH/MM3 Eosinophils # (Auto) 1.1 TH/MM3 Basophils # (Auto) 0.1 TH/MM3 CBC Comment DIFF FINAL Differential Comment Sodium Level 138 MEQ/L Potassium Level 4.4 MEQ/L Chloride Level 102 MEQ/L Carbon Dioxide Level 28.5 MEQ/L Anion Gap 8 MEQ/L Blood Urea Nitrogen 11 MG/DL Creatinine 0.90 MG/DL Estimat Glomerular Filtration 87 ML/MIN Rate Random Glucose 97 MG/DL Calcium Level 9.5 MG/DL MDM Medical Decision Making Medical Screen Exam Complete: Yes Emergency Medical Condition: Yes Medical Record Reviewed: Yes Interpretation(s) Laboratory Tests Test 08/24/16 14:29 White Blood Count 9.6 TH/MM3 Red Blood Count 4.55 MIL/MM3 Hemoglobin 14.7 GM/DL Hematocrit 41.8 % Mean Corpuscular Volume 91.9 FL Mean Corpuscular Hemoglobin 32.4 PG Mean Corpuscular Hemoglobin 35.3 % Concent Red Cell Distribution Width 13.1 % Platelet Count 462 TH/MM3 Mean Platelet Volume 7.4 FL Neutrophils (%) (Auto) 58.1 % Lymphocytes (%) (Auto) 22.2 % Monocytes (%) (Auto) 6.3 % Eosinophils (%) (Auto) 11.9 % Basophils (%) (Auto) 1.5 % Neutrophils # (Auto) 5.6 TH/MM3 Lymphocytes # (Auto) 2.1 TH/MM3 Monocytes # (Auto) 0.6 TH/MM3 Eosinophils # (Auto) 1.1 TH/MM3 Basophils # (Auto) 0.1 TH/MM3 CBC Comment DIFF FINAL Differential Comment Sodium Level 138 MEQ/L Potassium Level 4.4 MEQ/L Chloride Level 102 MEQ/L Carbon Dioxide Level 28.5 MEQ/L Anion Gap 8 MEQ/L Blood Urea Nitrogen 11 MG/DL Creatinine 0.90 MG/DL Estimat Glomerular Filtration 87 ML/MIN Rate Random Glucose 97 MG/DL Calcium Level 9.5 MG/DL CT of the thorax reveals fractures the left posterior lateral fifth, sixth, seventh ribs. There is no pneumothorax. Moderate sized left pleural effusion with no infiltrates. Coronary artery calcifications. Chest x-ray reveals left pleural effusion. Rib fracture. No obvious pneumothorax. Differential Diagnosis Differential diagnosis includes pneumothorax, hemothorax, rib fracture, empyema , pneumonia, costochondritis, musculoskeletal pain. Narrative Course IV was established, labs are drawn and sent, and the patient was placed on cardiac telemetry monitoring and continuous pulse oximetry monitoring. Chest x- ray was obtained. The patient was administered morphine, Zofran, and Toradol. Chest x-ray reveals a left pleural effusion and a left rib fracture, no pneumothorax. Laboratory evaluation was unremarkable. CT of the thorax reveals a moderate-sized left pleural effusion. Patient was reevaluated at 3: 47 PM. The patient's pain has improved with morphine and Toradol, he is not hypoxic, O2 sat is 98% on room air, he is not tachycardic, heart rate is in the 70s. The patient most likely has residual hemothorax from his trauma, I do not see an acute indication for drainage at this time. A call was placed to the on- call trauma surgeon, Dr. Spaulding, at 3:[address] Spaulding will evaluate the CT of the thorax and callback after he is evaluated the CT results and films. Dr. Spaulding called back at 4:10 PM, he states the CT results, effusion appears homogeneous, there is no hypoxia, patient can follow-up in the trauma clinic in 2 weeks. Patient is comfortable with this plan of care and disposition. Diagnosis Primary Impression: Ribs, multiple fractures Qualified Code: S22.42XD - Closed fracture of multiple ribs of left side with routine healing, subsequent encounter Additional Impression: Pleural effusion, left Referrals: [facility] 2 weeks Patient Instructions: General Instructions Additional Instructions: Medications as directed. Follow-up with your primary physician. Return if symptoms worsen or progress. Follow-up in the trauma clinic. Med/Other Pt SpecificInfo: Prescription(s) given Scripts Oxycodone-Acetaminophen (Percocet)5-325 mg Tab1 Tab PO Q6H PRN (PAIN) #20 TAB Ref 0 Prov:Sergey Nascimento MD 08/24/16 Ibuprofen 600 Mg [id number] Mg PO Q6H PRN (Pain/Inflammation) #20 TAB Ref 0 Prov:Sergey Nascimento MD 08/24/16 Disposition: 01 DISCHARGE HOME Condition: Stable Sergey Nascimento MD Aug 24, 2016 14:27
[2016-08-24] MEDS ORDERED: MORPHINE SULFATE 4 MG/ML INJ IV PUSH ONE (14:30)
[2016-08-24] MEDS ORDERED: KETOROLAC TROMETHAMINE 30 MG/ML (IVP) VIAL IV PUSH ONE (14:30)
[2016-08-24] MEDS ORDERED: ONDANSETRON HCL 4 MG/2 ML VIAL IV PUSH ONE (14:30)
[2016-08-24 14:36] LABS: AUTOMATED NEUTROPHIL # 5.6 TH/MM3 (1.8-7.7); BASOPHIL # 0.1 TH/MM3 (0-0.2); BASOPHIL % 1.5 % (0.0-2.0); EOSINOPHIL # 1.1 TH/MM3 (0-0.4); EOSINOPHIL % 11.9 % (0.0-4.0); HEMATOCRIT 41.8 % (39.0-51.0); HEMO FLAGS DIFF FINAL; LYMPH % 22.2 % (9.0-44.0); LYMPHOCYTE # 2.1 TH/MM3 (1.0-4.8); MEAN CELL VOLUME 91.9 FL (80.0-100.0); MEAN CORPUSCULAR HEMOGLOBIN 32.4 PG (27.0-34.0); MEAN CORPUSCULAR HGB CONC 35.3 % (32.0-36.0); MONO % 6.3 % (0.0-8.0); NEUT % 58.1 % (16.0-70.0); PLATELET COUNT 462 TH/MM3 (150-450); RED BLOOD COUNT 4.55 MIL/MM3 (4.50-5.90); RED CELL DISTRIBUTION WIDTH 13.1 % (11.6-17.2); WHITE BLOOD COUNT 9.6 TH/MM3 (4.0-11.0)
[2016-08-24 14:53] LABS: BICARBONATE 28.5 MEQ/L (21.0-32.0); POTASSIUM 4.4 MEQ/L (3.5-5.1)
--- NOTE | 2016-08-24 15:38 | RADRPT ---
EXAM DATE/TIME: 08/24/2016 15:20 [facility] COMPARISON: CT THORAX W CONTRAST, August 10, 2016, 14:54. INDICATIONS : Left chest pain, recent rauma with pneumo-hemo thorax RADIATION DOSE: 5.3 CTDIvol (mGy) MEDICAL HISTORY : None SURGICAL HISTORY : None. ENCOUNTER: Initial ACUITY: 2 days PAIN SCALE: 6/10 LOCATION: Left chest TECHNIQUE: Volumetric scanning of the chest was performed. Using automated exposure control and adjustment of t he mA and/or kV according to patient size, radiation dose was kept as low as reasonably achievable to obtain optimal diagnostic quality images. FINDINGS: LUNGS: There is no consolidation or pneumothorax. No concerning pulmonary nodule is visualized. PLEURAE: There is a moderate size left pleural effusion which extends into the lung apex. MEDIASTINUM: The heart and great vessels demonstrate no acute abnormality. There is no mediastinal or hilar lymph adenopathy. Coronary artery calcifications are present. AXILLAE: Within normal limits. No lymphadenopathy. MUSCULOSKELETAL: There are fractures of the left posterior lateral fifth, sixth and seventh ribs. MISCELLANEOUS: The visualized upper abdominal organs demonstrate no acute abnormality. CONCLUSION: 1. Fractures of the left posterior lateral fifth, sixth and seventh ribs. There is no pneumothorax. 2. Moderate size left pleural effusion with no infiltrates. 3. Coronary artery calcifications. Van Patel MD on August 24, 2016 at 15:31 Board Certified Radiologist. This report was verified electronically.
[2016-08-24] MEDS ORDERED: PERC5TAB12 PO (15:50)
[2016-08-24] MEDS ORDERED: IBUP-232 PO (15:50)
[2016-08-24 15:54] VITALS: BP 119/63; PULSE 65; RESP 18; O2SAT 97
--- NOTE | 2016-08-24 16:17 | RADRPT ---
EXAM DATE/TIME: 08/24/2016 14:38 [facility] COMPARISON: CHEST SINGLE AP, August 15, 2016, 5:13. INDICATIONS : Left rib pain, sent by urgent care because of fluid in his lungs. MEDICAL HISTORY : pneumothorax 2 weeks ago, in hospital with broken ribs SURGICAL HISTORY : None. ENCOUNTER: Initial ACUITY: 1 day PAIN SCORE: 9/10 LOCATION: Left chest FINDINGS: 2 AP erect portable views of the chest were obtained and again demonstrate a small to moderate left p leural effusion blunting costophrenic angle. This does not appear significantly changed. The right mohamud ng is clear. The heart size remains within normal limits. The known left rib fractures are not well-v isualized. There is no evidence of a pneumothorax. CONCLUSION: 1. Stable small to moderate left effusion. 2. No pneumothorax. Van Patel MD on August 24, 2016 at 16:13 Board Certified Radiologist. This report was verified electronically.
== END 2016-08-24 17:13 | disposition home or self-care (01) ==
LOC: NEPE 12:56
DX: S22.42XA Multiple fractures of ribs, left side, initial encounter for closed fracture (principal); F17.210 Nicotine dependence, cigarettes, uncomplicated; J90 Pleural effusion, not elsewhere classified; W13.2XXD Fall from, out of or through roof, subsequent encounter
CPT/HCPCS: 71010; 71250; 80048; 85025; 96374; 96375; 99284; J1885; J2270; J2405